=== PATIENT | female | born 1935 | race Two or more races ===

== ENCOUNTER 2017-12-14 15:31 | Outpatient (CLI) | payer OTHER ==
[~2017-12-14 15:31] MED LIST: LIPITOR; ZIRTEC
== END 2017-12-14 15:36 | disposition home or self-care (01) ==
LOC: RAD 501 15:31
DX: M25.561 Pain in right knee (principal); M25.562 Pain in left knee

== ENCOUNTER 2018-03-28 08:08 | Inpatient (IN) | payer OTHER ==
[~2018-03-28] VITALS: Ht 149.9 cm; Wt 54.4 kg
[2018-03-28] MEDS ORDERED: ALTACE10 MG PO (10:40)
[2018-03-28] MEDS ORDERED: METOPROLOL SUCC25 MG PO (10:40)
[2018-03-28] MEDS ORDERED: NORVASC5 MG PO (10:40)
[2018-03-28] MEDS ORDERED: METFORMIN HCL500 MG PO (10:40)
[2018-03-28] MEDS ORDERED: ASA81 MG PO (10:41)
[2018-04-04] MEDS ORDERED: ZYRTEC10 MG PO (11:51)
[2018-04-04] MEDS ORDERED: LIPITOR20 MG (11:52)
== END 2018-04-07 15:17 | DRG 470 ==
LOC: SURG 04-04 06:00 → O/R 04-04 06:00 → SURG 04-04 06:37
PROVIDERS: Orthopaedic Surgery
PROC: 0SRC0J9 Replacement of Right Knee Joint with Synthetic Substitute, Cemented, Open Approach (ICD-10-PCS; principal; 2018-04-04 07:00)
DX: M17.11 Unilateral primary osteoarthritis, right knee (principal); D62 Acute posthemorrhagic anemia; I10 Essential (primary) hypertension; I25.10 Atherosclerotic heart disease of native coronary artery without angina pectoris; Z86.73 Personal history of transient ischemic attack (TIA), and cerebral infarction without residual deficits; E11.9 Type 2 diabetes mellitus without complications